=== PATIENT | male | born 1960 | race Caucasian/White ===

== ENCOUNTER 2024-02-13 18:13 | Emergency (ER) | payer SELFPAY ==
[2024-02-13 18:19] VITALS: BP 168/106; PULSE 88; RESP 18; TEMP 36.7; O2SAT 100; BMI 29.8
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
[2024-02-13 18:47] LABS: Basophils # 0.1 K/mm3 (0-0.2); Basophils % 0.7 % (0.1-2.0); Eosinophils # 0.2 K/mm3 (0.0-0.4); Eosinophils % 1.1 % (0.1-12.0); Hematocrit 51.8 % (42.0-52.0); Hemoglobin 17.5 g/dL (14.1-18.0); Lymphocytes # 1.7 K/mm3 (0.7-4.5); Mean Corpuscular HGB Conc 33.8 g/dL (31.8-35.4); Mean Corpuscular Volume 94.5 fl (80-94); Mean Platelet Volume 7.4 fl (7.4-10.4); Monocytes # 0.5 K/mm3 (0.1-1.0); Monocytes % 3.5 % (1.7-9.3); Neutrophils # 12.8 K/mm3 (1.8-7.8); Neutrophils % 83.7 % (37.0-80.0); Platelet Count 250 K/mm3 (142-424); Red Blood Count 5.49 M/mm3 (4.60-6.20); White Blood Count 15.2 K/mm3 (4.8-10.8)
[2024-02-13 18:54] LABS: Activated Partial Thrombo Time 25.6 seconds (22.8-30.6); INR 0.84 (0.9-1.1); Prothrombin Time 9.6 seconds (10.1-12.5)
[2024-02-13 18:56] LABS: VBG Base Excess -1.2 mmol/L (-2.4-2.3); VBG HCO3 24.8 mmol/L (23-30); VBG Oxygen Saturation 47.8 % (50-70); VBG PCO2 49.1 mmol/L (35-51); VBG PH 7.32 mmol/L (7.31-7.41); VBG PO2 23.3 mmol/L (28-40); VBG Total CO2 26.4 mmol/L (23-27)
[2024-02-13 18:59] LABS: Lactate Venous 2.1 mmol/L (0.4-2.0)
[2024-02-13] MEDS: 0.9 % SODIUM CHLORIDE 50 ML VIAL 40 ML IV ×2 (19:00→19:01)
[2024-02-13] MEDS: IOPAMIDOL-370 (76%);100ML BOTTLE 100 ML IV (19:01)
[2024-02-13] MEDS: IOPAMIDOL-370 (76%);100ML BOTTLE 60 ML IV (19:01)
[2024-02-13] MEDS: SODIUM CHLORIDE 0.9% 10ML SYR (RAD ONLY) 10 ML IV (19:01)
[2024-02-13 19:13] LABS: MANUAL DIFFERENTIAL MANUAL DIFFERENTIAL (MANUAL DIFF)
[2024-02-13] MEDS: MORPHINE 4MG/ML SYRINGE 4 MG IV ×2 (19:29→21:50)
[2024-02-13] MEDS: 0.9 % SODIUM CHLORIDE 1000ML 1,000 ML 999 ML IV (19:30)
[2024-02-13] MEDS: ONDANSETRON 4MG/2ML VIAL 4 MG IV (19:30)
[2024-02-13 19:33] LABS: Alanine Aminotransferase 26 U/L (12-78); Albumin Level 4.9 g/dl (3.5-5.0); Albumin/Globulin Ratio 1.5 (1.1-1.8); Alkaline Phosphatase 74 U/L (38-126); Aspartate Amino Transferase 37 U/L (17-59); Bilirubin,Total 0.6 mg/dl (0.2-1.3); Blood Urea Nitrogen 11 mg/dl (9-20); Carbon Dioxide 26 mmol/L (22.0-30.0); Chloride 107 mmol/L (98-107); Creatinine Clearance Estimated 109 mL/min (50-200); Estimated Glomerular Filt Rate 76 ml/min (>60); GFR (African American) 92 ML/MIN (>60); Globulin 3.2 g/dL (1.3-3.2); Glucose 91 mg/dl (74-100); Lactic Acid 1.4 mmol/L (0.7-2.1); Lipase 183 U/L (23-300); Sodium 143 mmol/L (136-145); Total Protein,Serum 8.1 g/dl (6.3-8.2)
[2024-02-13 19:44] LABS: Troponin I < 0.01 ng/ml (0.00-0.034)
[2024-02-13] MEDS: TET/DIPHTH/PERT-ADULT 0.5ML SYRINGE 0.5 ML IM (19:47)
[2024-02-13 19:50] LABS: Ethyl Alcohol 149 mg/dl (0-10)
--- NOTE | 2024-02-13 19:55 | PC.NURSE ---
called [facility] about a possible transfer to [place], they will be calling us back.
[2024-02-13 20:18] LABS: Eosinophils % 2 % (0-3); Lymphocytes % 18 % (10-50); Monocytes % 3 % (2-9); Neutrophils % 77 % (42-76); Platelet Estimate Normal; RBC Morphology Normal; Total Cells Counted 100
--- NOTE | 2024-02-13 20:20 | PC.NURSE ---
20 g to L ac noted, flushes with blood return
--- NOTE | 2024-02-13 20:58 | ECG_ITS ---
APPROVED REPORT Exam: Resting ECG HR:95 bpm ECG Measurements Heart Rate 95 AXES NV 133 P 64 QRSd 79 QRS 25 QT 360 T 48 QTc 413 Conclusion SINUS RHYTHM POSSIBLE LEFT ATRIAL ENLARGEMENT [-0.1mV P-WAVE IN V1/V2] BORDERLINE ECG Electronically signed by : CARRILLO CARBAJAL, 02/14/2024 00:04:30
[2024-02-13 22:05] LABS: Troponin I < 0.01 ng/ml (0.00-0.034)
[2024-02-13 22:30] VITALS: BP 132/82; PULSE 80; RESP 16; TEMP 36.6; O2SAT 95
[2024-02-13 22:35] LABS: Reflex Lactic Add Lactic Reflex
[2024-02-13 22:47] VITALS: BP 184/95; PULSE 91; RESP 100; TEMP 36.8; O2SAT 98
[2024-02-13 22:49] LABS: Microscopic, Urine URINE MICROSCOPIC (MICROSCOPIC)
[2024-02-13 22:55] LABS: Appearance,Urine CLEAR (Clear); Bilirubin,Urine Negative (Negative); Blood, Urine TRACE-I (Negative); Color,Urine YELLOW (Yellow); Glucose,Urine (UA) Negative (Negative); Ketones,Urine Negative (Negative); Leukocyte Esterase,Urine Negative (Negative); Nitrate,Urine Negative (Negative); PH,Urine 5.5 (5.0-8.5); Protein,Urine Negative (Negative); Urobilinogen,Urine 0.2 EU/dl (0.2)
[2024-02-13 23:04] LABS: Bacteria,Urine Trace /lpf
[2024-02-13 23:13] LABS: Amphetamine/Metha Screen,Urine Negative ng/ml (<1000); Barbiturates Screen,Urine Negative ng/ml (<200); Benzodiazepines Screen,Urine Negative ng/ml (<200); Cannabinoid Screen,Urine Negative ng/ml (<50); Cocaine Screen,Urine Negative ng/ml (<300); Methadone Screen,Urine Negative ng/ml (<300); Opiate Screen,Urine Positive ng/ml (<300); Phencyclidine Screen,Urine Negative ng/ml (<25)
== END 2024-02-13 22:45 | disposition short-term general hospital (02) ==
PROVIDERS: Emergency Provider Emergency Medicine; PCP Family Medicine
DX: S22.32XA Fracture of one rib, left side, initial encounter for closed fracture (principal); S06.6XAA Traumatic subarachnoid hemorrhage with loss of consciousness status unknown, initial encounter; S22.029A Unspecified fracture of second thoracic vertebra, initial encounter for closed fracture; S12.400A Unspecified displaced fracture of fifth cervical vertebra, initial encounter for closed fracture; S12.300A Unspecified displaced fracture of fourth cervical vertebra, initial encounter for closed fracture; S01.311A Laceration without foreign body of right ear, initial encounter; F10.929 Alcohol use, unspecified with intoxication, unspecified; R51.9 Headache, unspecified; M54.9 Dorsalgia, unspecified; Z23 Encounter for immunization; V49.3XXA Car occupant (driver) (passenger) injured in unspecified nontraffic accident, initial encounter; Y93.89 Activity, other specified; Y92.89 Other specified places as the place of occurrence of the external cause; F11.90 Opioid use, unspecified, uncomplicated; Y90.6 Blood alcohol level of 120-199 mg/100 ml
CPT/HCPCS: 70450; 70496; 70498; 71045; 71275; 72125; 72128; 72131; 72170; 72192; 74174; 80053; 80307; 80320; 81001; 82803; 83605; 83690; 84484; 85007; 85025; 85027; 85610; 85730; 90471; 90715; 93005; 96361; 96374; 96375; 99285; G0480; J2270; J2405; J7030; Q9967